=== PATIENT | female | born 1950 | race Caucasian/White ===

== ENCOUNTER 2019-10-27 13:17 | Outpatient (CLI) | payer MEDICARE, OTHER, SELFPAY ==
--- NOTE | 2019-10-27 13:27 | XR_ITS ---
WS: [id number] DEXA (DUAL ENERGY X-RAY ABSORPTIOMETRY) Bone mineral density was performed using a [employer] machine. HISTORY: POST MENOPAUSAL COMPARISON: None available. Lumbar spine BMD (L1-L4): 1.293 g/cm2 T score: 0.9 Z score: 1.4 Total hip BMD: Left: 0.952 g/cm2. T score: -0.4 Z score: 0.1 Right: 0.941 g/cm2. T score: -0.5 Z score: 0.0 10 year probability of a major osteoporotic fracture is 10%. XR/XR DEXA axial skeleton* [id number] IMPRESSION: NORMAL BONE MINERAL DENSITY based upon the WHO classification for females.
== END 2019-10-27 13:18 | disposition home or self-care (01) ==
LOC: RADWPI 13:26
PROVIDERS: PCP Nurse Practitioner; Visit Provider Nurse Practitioner
DX: N95.8 Other specified menopausal and perimenopausal disorders (principal)
CPT/HCPCS: 77080

== ENCOUNTER 2019-11-04 09:38 | Outpatient (CLI) | payer MEDICARE, OTHER, SELFPAY ==
--- NOTE | 2019-11-04 | US_ITS ---
WS: [id number] Gallbladder ultrasound, 11/04/2019 Clinical Data: ELEVATED ALKALINE PHOSPHATASE LEVEL Comparison: None. Findings: The gallbladder is absent. The common bile duct is 3.4 mm and there are no intrahepatic ductal abnorm alities. Liver shows no cysts, masses or dilated intrahepatic ducts. The liver is dense and measures 17.03 x 1 5.20 cm in greatest AP and transverse dimension The pancreas is obscured by overlying bowel gas but no cyst, pseudocyst, or evidence of pancreatitis is noted. Right kidney measures 4.48 x 4.93 x 11.36 cm and no cyst, masses or hydronephrosis can be seen. The aorta and inferior vena cava show no vascular abnormalities. US/US liver [id number] Impression: 1. Absent gallbladder. 2. Dense enlarged liver.
== END 2019-11-04 09:39 | disposition home or self-care (01) ==
LOC: RADWPI 12:28
PROVIDERS: PCP Nurse Practitioner; Visit Provider Nurse Practitioner
DX: R74.8 Abnormal levels of other serum enzymes (principal); R16.0 Hepatomegaly, not elsewhere classified
CPT/HCPCS: 76705